=== PATIENT | male | born 1955 | race Caucasian/White ===

== ENCOUNTER 2016-06-15 14:34 | Inpatient (IN) | payer MEDICAID ==
[~2016-06-15] VITALS: Ht 177.8 cm; Wt 95.4 kg
[2016-06-15 16:46] LABS: BASOPHIL % 0.3 % (0-2); PLATELET COUNT 273 x10^3mcL (130-400); RED CELL DISTRIBUTION WIDTH 13.9 % (11.5-14.5)
[2016-06-15 16:50] LABS: CALCIUM 8.8 mg/dL (8.5-10.1); CARBON DIOXIDE 34.1 mmol/L (21-32); CREATININE SERUM 1.5 mg/dL (0.7-1.3); POTASSIUM SERUM 3.5 mmol/L (3.5-5.1)
[2016-06-15 17:03] LABS: BILIRUBIN TOTAL 0.54 mg/dL (0.20-1.00); FREE T4 0.13 ng/dL (0.76-1.46); TOTAL PROTEIN, SERUM 7.5 g/dL (6.4-8.2)
[2016-06-15 17:10] LABS: T3 TOTAL 0.11 ng/mL
[2016-06-15] MEDS ORDERED: LEVOTHYROXINE0.15 M2 PO (18:21)
[2016-06-15 19:18] VITALS: BP 165/101
[2016-06-15 19:25] VITALS: Ht 177.8 cm; Wt 95.4 kg
[2016-06-15 20:02] LABS: MAGNESIUM 2.3 mg/dL (1.8-2.4); PHOSPHOROUS 2.9 mg/dL (2.5-4.9)
[2016-06-15 20:03] LABS: CHOLESTEROL/HDL RATIO 5.6
[2016-06-15 21:02] VITALS: BP 164/105
[2016-06-16 01:02] VITALS: BP 114/81
[2016-06-16 05:04] LABS: microscopic required? YES; urine erythrocyte TRACE (NEGATIVE)
[2016-06-16 05:13] LABS: AMPHETAMINE QUAL UR NONE DETECTED (NEG <=1000)
[2016-06-16 05:23] VITALS: BP 132/93
[2016-06-16 06:21] LABS: BASOPHIL % 0.4 % (0-2); PLATELET COUNT 304 x10^3mcL (130-400); RED CELL DISTRIBUTION WIDTH 14.2 % (11.5-14.5)
[2016-06-16 06:53] LABS: CALCIUM 8.8 mg/dL (8.5-10.1); CARBON DIOXIDE 27.4 mmol/L (21-32); CREATININE SERUM 1.4 mg/dL (0.7-1.3); POTASSIUM SERUM 3.6 mmol/L (3.5-5.1)
[2016-06-16 09:19] VITALS: BP 157/92
[2016-06-16 14:11] VITALS: BP 135/88
[2016-06-16 18:48] VITALS: BP 138/92
[2016-06-16 21:25] VITALS: BP 127/69
[2016-06-17 05:17] VITALS: BP 135/93
[2016-06-17 06:29] LABS: T3 TOTAL 0.39 ng/mL
[2016-06-17 06:31] LABS: CALCIUM 8.4 mg/dL (8.5-10.1); CARBON DIOXIDE 27.6 mmol/L (21-32); CREATININE SERUM 1.4 mg/dL (0.7-1.3); POTASSIUM SERUM 3.7 mmol/L (3.5-5.1)
[2016-06-17 07:16] LABS: FREE T4 0.29 ng/dL (0.76-1.46)
[2016-06-17 07:42] LABS: FREE THYROXINE INDEX 0.7 ug/dL (1.4-4.5); T4(THYROXINE) 2.6 ug/dL (4.7-13.3)
[2016-06-17 08:01] LABS: BASOPHIL % 0.4 % (0-2); PLATELET COUNT 268 x10^3mcL (130-400); RED CELL DISTRIBUTION WIDTH 13.9 % (11.5-14.5)
[2016-06-17 09:56] VITALS: BP 157/93
[2016-06-17] MEDS ORDERED: LEVOTHYROXINE0.15 M2 PO (11:14)
[2016-06-17 11:34] VITALS: BP 157/93
== END 2016-06-17 12:42 | disposition home or self-care (01) | DRG 424 ==
LOC: ED 14:34 → DU 17:56
PROVIDERS: Emergency Medicine; Family Medicine; ADMIT Family Medicine
DX: E03.9 Hypothyroidism, unspecified (principal); N17.0 Acute kidney failure with tubular necrosis; G93.41 Metabolic encephalopathy; I67.4 Hypertensive encephalopathy; E78.2 Mixed hyperlipidemia; E66.9 Obesity, unspecified; Z68.30 Body mass index [BMI] 30.0-30.9, adult; F17.210 Nicotine dependence, cigarettes, uncomplicated; Z91.14 Patient's other noncompliance with medication regimen
CPT/HCPCS: 80307; 83880; 84439; C9113; J0360; J1720; J3490; J7030; Q0092

== ENCOUNTER 2016-11-17 22:48 | Emergency (ER) | payer MEDICAID ==
[~2016-11-17 22:48] MED LIST: LEVOTHYROXINE0.15 M2 PO
[2016-11-17 23:29] LABS: BASOPHIL % 0.6 % (0-2); PLATELET COUNT 343 x10^3mcL (130-400)
[2016-11-17 23:43] LABS: CARBON DIOXIDE 27.1 mmol/L (21-32); CREATININE SERUM 1.4 mg/dL (0.7-1.3)
[2016-11-17 23:48] LABS: ALBUMIN 3.7 g/dL (3.4-5.0); BILIRUBIN TOTAL 0.2 mg/dL (0.20-1.00); TOTAL PROTEIN, SERUM 7.5 g/dL (6.4-8.2); URIC ACID 5.2 mg/dL (3.5-7.2)
[2016-11-18 02:57] VITALS: BP 144/84
== END 2016-11-18 02:57 | disposition home or self-care (01) ==
LOC: ED 22:48
PROVIDERS: Emergency Medicine
DX: N23 Unspecified renal colic (principal); F17.200 Nicotine dependence, unspecified, uncomplicated
CPT/HCPCS: J1885; J2270; J2405

== ENCOUNTER 2017-08-20 08:38 | Emergency (ER) | payer MEDICAID ==
[~2017-08-20] VITALS: Ht 177.8 cm; Wt 90.7 kg
[2017-08-20 08:40] VITALS: Ht 177.8 cm; Wt 90.7 kg
[2017-08-20 09:11] LABS: BASOPHIL % 0.7 % (0-2); PLATELET COUNT 301 x10^3mcL (130-400); RED CELL DISTRIBUTION WIDTH 13.5 % (11.5-14.5)
[2017-08-20 09:40] LABS: CALCIUM 8.7 mg/dL (8.5-10.1); CARBON DIOXIDE 23.9 mmol/L (21-32); CREATININE SERUM 1.5 mg/dL (0.7-1.3); POTASSIUM SERUM 3.8 mmol/L (3.5-5.1)
[2017-08-20 09:43] LABS: BILIRUBIN TOTAL 0.38 mg/dL (0.20-1.00); TOTAL PROTEIN, SERUM 7.4 g/dL (6.4-8.2)
[2017-08-20 12:16] VITALS: BP 190/114
[2017-08-20 12:21] LABS: UA SPECIFIC GRAVITY 1.025 (1.005-1.035); microscopic required? YES; urine erythrocyte TRACE (NEGATIVE)
== END 2017-08-20 12:16 | disposition home or self-care (01) ==
LOC: ED 08:38
PROVIDERS: Emergency Medicine
DX: N23 Unspecified renal colic (principal); F17.200 Nicotine dependence, unspecified, uncomplicated; I10 Essential (primary) hypertension
CPT/HCPCS: 99406; J1885; J7030

== ENCOUNTER 2017-09-17 09:13 | Inpatient (IN) | payer MEDICAID ==
[~2017-09-17] VITALS: Ht 177.8 cm; Wt 92.3 kg
[2017-09-17 10:00] LABS: BASOPHIL % 0.4 % (0-2); PLATELET COUNT 347 x10^3mcL (130-400); RED CELL DISTRIBUTION WIDTH 13.9 % (11.5-14.5)
[2017-09-17 10:08] LABS: CALCIUM 9.1 mg/dL (8.5-10.1); CARBON DIOXIDE 26.1 mmol/L (21-32); CREATININE SERUM 1.5 mg/dL (0.7-1.3); POTASSIUM SERUM 4.1 mmol/L (3.5-5.1)
[2017-09-17 10:12] LABS: ALBUMIN 3.9 g/dL (3.4-5.0); BILIRUBIN TOTAL 0.4 mg/dL (0.20-1.00); TOTAL PROTEIN, SERUM 7.5 g/dL (6.4-8.2)
[2017-09-17 11:53] LABS: UA SPECIFIC GRAVITY >=1.030 (1.005-1.035); microscopic required? YES; urine erythrocyte 2+ (NEGATIVE)
[2017-09-17] MEDS ORDERED: NORCO1 TA2 (12:11)
[2017-09-17 13:02] VITALS: BP 139/97
[2017-09-17 13:17] LABS: FREE T4 0.67 ng/dL (0.76-1.46); FREE THYROXINE INDEX 1.5 ug/dL (1.4-4.5)
[2017-09-17 13:21] LABS: T3 TOTAL 0.98 ng/mL
[2017-09-17 13:56] LABS: MAGNESIUM 2.2 mg/dL (1.8-2.4); PHOSPHOROUS 3.6 mg/dL (2.5-4.9)
[2017-09-17 13:58] LABS: CHOLESTEROL/HDL RATIO 5.3
[2017-09-17 18:01] VITALS: BP 155/90
[2017-09-17 21:15] VITALS: BP 134/82
[2017-09-18 05:04] VITALS: BP 130/83
[2017-09-18 08:39] VITALS: BP 123/85
[2017-09-18] MEDS ORDERED: KETOROLAC TROME10 MG PO (10:50)
[2017-09-18 12:13] VITALS: BP 142/90
[2017-09-18] MEDS ORDERED: FLO4 PO (13:03)
== END 2017-09-18 14:40 | disposition home or self-care (01) | DRG 465 ==
LOC: ED 09:13 → MU 11:56 → DU 11:56 → MU 12:57 → DU 13:02
PROVIDERS: Emergency Medicine; Family Medicine
DX: N13.2 Hydronephrosis with renal and ureteral calculous obstruction (principal); N17.0 Acute kidney failure with tubular necrosis; N21.0 Calculus in bladder; I16.0 Hypertensive urgency; M50.30 Other cervical disc degeneration, unspecified cervical region; E78.5 Hyperlipidemia, unspecified; E03.9 Hypothyroidism, unspecified; E78.00 Pure hypercholesterolemia, unspecified; F12.10 Cannabis abuse, uncomplicated; F17.210 Nicotine dependence, cigarettes, uncomplicated; Z87.442 Personal history of urinary calculi; Z79.891 Long term (current) use of opiate analgesic
CPT/HCPCS: 83880; 84439; 99406; J1885; J7030; Q0092

== ENCOUNTER 2017-10-11 00:22 | Emergency (ER) | payer MEDICAID ==
[~2017-10-11] VITALS: Ht 177.8 cm; Wt 93.0 kg
[~2017-10-11 00:22] MED LIST changes: +FLO4 PO; +KETOROLAC TROME10 MG PO; +NORCO1 TA2
[2017-10-11 00:26] VITALS: Ht 177.8 cm; Wt 93.0 kg
[2017-10-11 01:10] LABS: BASOPHIL % 1.6 % (0-2); PLATELET COUNT 318 x10^3mcL (130-400); RED CELL DISTRIBUTION WIDTH 12.9 % (11.5-14.5)
[2017-10-11 01:24] LABS: CALCIUM 8.6 mg/dL (8.5-10.1); CHLORIDE SERUM 105 mmol/L (98-107); CREATININE SERUM 1.3 mg/dL (0.7-1.3); GFR1 > 60 mL/min; GLUCOSE SERUM 117 mg/dL (74-106); POTASSIUM SERUM 3.6 mmol/L (3.5-5.1); SODIUM SERUM 142 mmol/L (136-145)
[2017-10-11 01:29] LABS: ALBUMIN 3.5 g/dL (3.4-5.0); ALKALINE PHOSPHATASE 73 U/L (46-116); ALT/SGPT 26 U/L (16-63); AST/SGOT 23 U/L (15-37); BILIRUBIN TOTAL 0.31 mg/dL (0.20-1.00); LIPASE 189 IU/L (73-393)
[2017-10-11 02:31] VITALS: BP 159/72
== END 2017-10-11 02:31 | disposition home or self-care (01) ==
LOC: ED 00:22
PROVIDERS: Emergency Medicine
DX: N20.1 Calculus of ureter (principal)
CPT/HCPCS: J1885; J2270; J7030

== ENCOUNTER 2017-12-05 23:28 | Inpatient (IN) | payer MEDICAID ==
[~2017-12-05] VITALS: Ht 177.8 cm; Wt 95.5 kg
[2017-12-05 23:34] VITALS: Ht 177.8 cm; Wt 95.5 kg
[2017-12-06 00:18] LABS: UA SPECIFIC GRAVITY >=1.030 (1.005-1.035); microscopic required? YES; urine erythrocyte 1+ (NEGATIVE)
[2017-12-06 00:25] LABS: CALCIUM 8.6 mg/dL (8.5-10.1); CARBON DIOXIDE 26.5 mmol/L (21-32); CREATININE SERUM 1.4 mg/dL (0.7-1.3); POTASSIUM SERUM 3.7 mmol/L (3.5-5.1)
[2017-12-06 00:27] LABS: BASOPHIL % 1.1 % (0-2); PLATELET COUNT 299 x10^3mcL (130-400); RED CELL DISTRIBUTION WIDTH 13.7 % (11.5-14.5)
[2017-12-06 00:34] LABS: ALBUMIN 3.6 g/dL (3.4-5.0); BILIRUBIN TOTAL 0.3 mg/dL (0.20-1.00); TOTAL PROTEIN, SERUM 7.1 g/dL (6.4-8.2)
[2017-12-06 02:07] LABS: MAGNESIUM 2.4 mg/dL (1.8-2.4)
[2017-12-06 02:13] LABS: CHOLESTEROL/HDL RATIO 5.1
[2017-12-06 02:14] VITALS: BP 136/85
[2017-12-06 02:16] LABS: AMPHETAMINE QUAL UR POSITIVE (See below)
[2017-12-06 02:24] LABS: FREE T4 0.6 ng/dL (0.76-1.46)
[2017-12-06 02:27] LABS: FREE THYROXINE INDEX 1.3 ug/dL (1.4-4.5); T4(THYROXINE) 4.3 ug/dL (4.7-13.3)
[2017-12-06 02:37] VITALS: BP 136/85
[2017-12-06 02:39] LABS: T3 TOTAL 0.88 ng/mL
[2017-12-06 05:36] VITALS: BP 147/91
[2017-12-06 07:19] LABS: CALCIUM 8.1 mg/dL (8.5-10.1); CARBON DIOXIDE 25.6 mmol/L (21-32); CREATININE SERUM 1.3 mg/dL (0.7-1.3); POTASSIUM SERUM 4.1 mmol/L (3.5-5.1)
[2017-12-06 07:27] LABS: PLATELET COUNT 252 x10^3mcL (130-400); RED CELL DISTRIBUTION WIDTH 14.1 % (11.5-14.5)
[2017-12-06 09:36] VITALS: BP 144/87
[2017-12-06 12:33] VITALS: BP 149/88
[2017-12-06 14:26] VITALS: BP 149/88
== END 2017-12-06 15:50 | disposition home or self-care (01) | DRG 465 ==
LOC: ED 23:28 → MU 12-06 01:12
PROVIDERS: Emergency Medicine; Family Medicine
DX: N13.2 Hydronephrosis with renal and ureteral calculous obstruction (principal); N17.0 Acute kidney failure with tubular necrosis; E03.9 Hypothyroidism, unspecified; E78.5 Hyperlipidemia, unspecified; Z68.29 Body mass index [BMI] 29.0-29.9, adult
CPT/HCPCS: 83880; 84439; J0696; J1885; J2001; J7030; Q0162

== ENCOUNTER 2018-07-03 10:13 | Emergency (ER) | payer MEDICAID ==
[~2018-07-03] VITALS: Ht 177.8 cm; Wt 97.1 kg
[2018-07-03 10:15] VITALS: Ht 177.8 cm; Wt 97.1 kg
[2018-07-03 12:05] VITALS: BP 136/75
== END 2018-07-03 12:05 | disposition home or self-care (01) ==
LOC: ED 10:13
DX: L03.113 Cellulitis of right upper limb (principal); L98.8 Other specified disorders of the skin and subcutaneous tissue; E78.00 Pure hypercholesterolemia, unspecified; Z98.890 Other specified postprocedural states; W57.XXXA Bitten or stung by nonvenomous insect and other nonvenomous arthropods, initial encounter; Y93.89 Activity, other specified; Y92.89 Other specified places as the place of occurrence of the external cause; Y99.8 Other external cause status
CPT/HCPCS: J0696

== ENCOUNTER 2018-07-04 11:34 | Emergency (ER) | payer MEDICAID ==
[~2018-07-04] VITALS: Ht 177.8 cm; Wt 96.2 kg
[2018-07-04 12:22] VITALS: Ht 177.8 cm; Wt 96.2 kg
[2018-07-04 12:56] LABS: CARBON DIOXIDE 28.5 mmol/L (21-32); CHLORIDE SERUM 102 mmol/L (98-107); CREATININE SERUM 1.2 mg/dL (0.7-1.3); GFR1 > 60 mL/min; GLUCOSE SERUM 87 mg/dL (74-106); POTASSIUM SERUM 4.4 mmol/L (3.5-5.1); SODIUM SERUM 137 mmol/L (136-145)
[2018-07-04 12:58] LABS: BASOPHIL % 0.5 % (0-2); PLATELET COUNT 281 x10^3mcL (130-400); RED CELL DISTRIBUTION WIDTH 13.4 % (11.5-14.5)
[2018-07-04 13:00] LABS: ALBUMIN 3.5 g/dL (3.4-5.0); ALKALINE PHOSPHATASE 72 U/L (46-116); ALT/SGPT 26 U/L (16-63); AST/SGOT 34 U/L (15-37); BILIRUBIN TOTAL 0.31 mg/dL (0.20-1.00); TOTAL PROTEIN, SERUM 7.2 g/dL (6.4-8.2)
[2018-07-04 13:31] VITALS: BP 128/78
== END 2018-07-04 13:31 | disposition home or self-care (01) ==
LOC: ED 11:34
PROVIDERS: Emergency Medicine
DX: L03.113 Cellulitis of right upper limb (principal); T63.331A Toxic effect of venom of brown recluse spider, accidental (unintentional), initial encounter; M79.89 Other specified soft tissue disorders; E03.9 Hypothyroidism, unspecified; E78.00 Pure hypercholesterolemia, unspecified; Z98.890 Other specified postprocedural states; Z87.442 Personal history of urinary calculi; Y92.89 Other specified places as the place of occurrence of the external cause
CPT/HCPCS: J0696

== ENCOUNTER 2018-07-04 23:29 | Emergency (ER) | payer MEDICAID ==
[~2018-07-04] VITALS: Ht 177.8 cm; Wt 97.5 kg
[2018-07-04 23:39] VITALS: BP 178/111; Ht 177.8 cm; Wt 97.5 kg
== END 2018-07-05 01:10 | disposition home or self-care (01) ==
LOC: ED 23:29
DX: L03.113 Cellulitis of right upper limb (principal); T63.331A Toxic effect of venom of brown recluse spider, accidental (unintentional), initial encounter; L53.0 Toxic erythema; E03.9 Hypothyroidism, unspecified; Y92.89 Other specified places as the place of occurrence of the external cause